=== PATIENT | female | born 1955 | race Two or more races ===

== ENCOUNTER 2021-01-05 13:10 | Emergency (ER) | payer MEDICARE, OTHER ==
[~2021-01-05] VITALS: Ht 152.4 cm; Wt 72.0 kg
--- NOTE | 2021-01-05 13:33 | NUR ---
USING TRANSLATING PHONE, PT STATED SHE WAS CLEANING A ROOM AND SHE SAW A BAG OF GUMMY CANDIES. SHE ATE 4 GUMMIES AROUND 1100, THEN STARTED FEELING WEAK AND NUMB. PT PLACED ON VITALS MONITORS. PT SOMULENT BUT EASILY AROUSED. WILL CONTINUE TO MONITOR.
--- NOTE | 2021-01-05 14:12 | NUR ---
BREAK RN: PT UPRIGHT ON GURNEY WITH EYES CLOSED TALKING ON CELL PHONE, NAD, NO NEEDS AT THIS TIME, CALL LIGHT WTIHIN REACH.
--- NOTE | 2021-01-05 15:50 | NUR ---
PT REMAINS RESTING CALMLY IN BED WITH EYES CLOSED. WILL CONTINUE TO MONITOR.
[2021-01-05 16:41] VITALS: BP 120/66
--- NOTE | 2021-01-05 16:45 | NUR ---
PT CO-WORKER CAME TO PICK PT UP
== END 2021-01-05 16:44 | disposition home or self-care (01) ==
LOC: ED 16:35
DX: R42 Dizziness and giddiness (principal); T40.7X5A Adverse effect of cannabis (derivatives), initial encounter; Y92.9 Unspecified place or not applicable
CPT/HCPCS: 99283